=== PATIENT | female | born 1985 | race Caucasian/White ===

== ENCOUNTER 2017-12-25 07:30 | Outpatient (RCR) | payer SELFPAY ==
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
--- NOTE | 2018-03-08 10:44 | HP.PT.NRP ---
HP - Discharge Summary (1) - Patient Information ESTIVEN VARGAS was seen in my office for initial evaluation on 12/22/17. The following Plan of Care was established for this patient: Initial Frequency: 1x/Week Initial Duration: 6 Months - Anticipated Interventions Manual Therapy Techniques to Include: Functional dry needling This patient was last seen in our office . Pertinent comments regarding their Physical therapy will appear below: Patient to be seen for formal PT- d/c from dry needling as patient needs more than this modality. At this point I will be discontinuing this patient from physical therapy. I would be happy to see this patient again in the future if found appropriate by the physician. Thank you! Maura José
== END 2017-12-25 19:00 | disposition home or self-care (01) ==
LOC: PT 07:30
PROVIDERS: Family Provider Family Medicine; PCP Family Medicine
DX: R69 Illness, unspecified (principal)

== ENCOUNTER → 2017-12-31 16:44 | Outpatient (CLI) | payer OTHER, SELFPAY ==
[2018-01-08 07:25] LABS: HPV Reflexed? NOT INDICATED
== END ==
PROVIDERS: Family Provider Family Medicine; PCP Family Medicine; Visit Provider Obstetrics & Gynecology
DX: Z12.4 Encounter for screening for malignant neoplasm of cervix (principal)
CPT/HCPCS: 88175; G0145

== ENCOUNTER → 2018-01-08 10:31 | Outpatient (CLI) | payer OTHER, SELFPAY ==
--- NOTE | 2018-01-08 10:37 | RAD_ITS ---
STUDY: X-RAY - LEFT SHOULDER REASON FOR EXAM: Female, 32 years old. Shoulder pain. No trauma TECHNIQUE: 3 view(s) of the shoulder. COMPARISON: None. FINDINGS: Normal glenohumeral articulation. Normal acromioclavicular joint. Normal acromion. Normal humeral head and visualized proximal humerus. The soft tissue structures are unremarkable. Normal visualized pulmonary apex. RAD/Shoulder min 2 Views IMPRESSION: Normal x-ray examination of the shoulder. Electronically Signed: Frankie Sanchez MD, FACR at 11:14 EST , Service support ,
== END ==
PROVIDERS: Family Provider Family Medicine; PCP Family Medicine; Visit Provider Orthopaedic Surgery
DX: M25.512 Pain in left shoulder (principal)
CPT/HCPCS: 73030

== ENCOUNTER 2018-01-22 07:00 | Outpatient (RCR) | payer OTHER, SELFPAY ==
--- NOTE | 2018-01-20 13:33 | HP.PTEVAL_ITS ---
Patient's Visit Information ESTIVEN VARGAS is a 32 year old F referred to Physical Therapy by DO JOSE DE JESUS Sepulveda with a diagnosis of L shoulder impingement. Date of Evaluation: 01/20/18 Physical Therapist: Edgard Eisenberg PT, - Visit Plan Frequency: 1x/Week Duration: 1-2 weeks Plan: Edu and issue HEP for rot cuff strengthening and scap stab ex's - Subjective Subjective: Pt reports her L shoulder became sore in October 2017. Pt reports the pain worsened and by the end of November, she finally went and saw Dr. Yates for a consult. Pt reports she had Xrays which revealed no sig findings. Pt also notes she had dry neddling in the past which did not help. Pt reports she believes that lifting weights is maybe what caused her pain to occur. Pt reports her pain has sig lessened since stopping with her weight lifting. Pt is also in yoga, and notes that also causes her pain. Pt is R hand dom. Pt notes overhead lifting causes pain when is already sore. Pt notes occasional sleep diff. 3/10 at rest, 7/10 at worst - Pain L shoulder Pain Intensity (Out of 10): 3 Pain Intensity Range: 7 - Objective Neuro: B UE sensation is WNL to light touch. B bicepital reflex= 2/3. Palpation : Pt is very tender along the LHB tendon and the supraspinatus. No obvious deformity present. ROM: R shoulder flex= 178, abd= 178, ER= 55, IR WNL; L shoulder flex= 150, abd= 178, ER= 35, IR min limited. MMT: R shoulder 5/5 throughout, L shoulder abd and IR= 5/5, flex and ER= 4-/5 painful. Special testing: pos empty can sign - Goals Goal 1:: I with HEP Goal Time Frame: 1 Week - Rehabilitation Potential Physical Therapy Diagnosis: L shoulder pain, weakness, and limited mobility secondary to R shoulder impingement Rehabilitation Potential: Good - Anticipated Interventions Patient/Client Instruction: Educate patient on: Condition, Plan of Care For the Purpose of:: To improve self management Therapeutic Exercise to Include: Strength training, Endurance training, Body mechanics, Postural training, Scapular Strength/Stabilization For the Purpose of:: To decrease pain, To increase ROM, To improve muscle performance and motor function Thank you for the opportunity to evaluate your patient. For Medicare and Medicare HMO plans, please review the plan of care and approve it. It will need to be FAXED BACK to us at [phone] for Medicare purposes. Please let me know if there are questions or concerns regarding this plan of care. Physician Signature: Date:
--- NOTE | 2018-03-29 12:11 | HP.PT.NRP ---
HP - Discharge Summary (1) - Patient Information ESTIVEN VARGAS was seen in my office for initial evaluation on 01/20/18. The following Plan of Care was established for this patient: Initial Frequency: 1x/Week Initial Duration: 1-2 weeks - Anticipated Interventions Patient/Client Instruction: Educate patient on: Condition, Plan of Care For the Purpose of:: To improve self management Therapeutic Exercise to Include: Strength training, Endurance training, Body mechanics, Postural training, Scapular Strength/Stabilization For the Purpose of:: To decrease pain, To increase ROM, To improve muscle performance and motor function This patient was last seen in our office . Pertinent comments regarding their Physical therapy will appear below: Pt was last treated on the date of 01/22/18 for her shoulder pain. Pt was issued a HEP and was I with ex's at that time. Pt has not returned through todays date and is therefore discontinued at this time At this point I will be discontinuing this patient from physical therapy. I would be happy to see this patient again in the future if found appropriate by the physician. Thank you! Edgard Eisenberg, PT,
== END 2018-01-22 19:00 | disposition home or self-care (01) ==
LOC: PT 07:00
PROVIDERS: Family Provider Internal Medicine; PCP Internal Medicine; Visit Provider Orthopaedic Surgery
DX: M75.42 Impingement syndrome of left shoulder (principal); M75.22 Bicipital tendinitis, left shoulder
CPT/HCPCS: 97110; 97161

== ENCOUNTER → 2019-02-09 11:27 | Outpatient (CLI) | payer OTHER, SELFPAY ==
[2019-02-09 14:28] LABS: HIV - WCH Non-Reactive (Nonreactive)
[2019-02-09 17:39] LABS: Chlamydia Trachomatis by PCR Negative (Negative); Neisserai gonorrhoeae by PCR Negative (Negative); Probe Check PASS; Sample Adequacy Control PASS; Specimen Processing Control PASS
[2019-02-10 16:08] LABS: HEPATITIS B SURFACE AG Negative (Negative); Hepatitis B Core AB IgM Negative (Negative); Hepatitis B Core Ab Total Negative (Negative); Hepatitis Be Ab Negative (Negative); Hepatitis Be Ag Negative (Negative); Hepatitis C Ab <0.1 s/co ratio (0.0-0.9)
[2019-02-10 20:20] LABS: Rapid Plasmin Reagin (RPR) NONREACTIVE (NONREACTIVE)
[2019-02-11 08:53] LABS: Hep B Surface Antibodies Non Reactive (.)
== END ==
PROVIDERS: Visit Provider Obstetrics & Gynecology
DX: N89.8 Other specified noninflammatory disorders of vagina (principal)
CPT/HCPCS: 36415; 86592; 86703; 86704; 86705; 86706; 86707; 86803; 87340; 87350; 87491; 87591

== ENCOUNTER → 2019-04-27 | Outpatient (CLI) | payer OTHER, SELFPAY ==
[2019-04-29 15:55] LABS: HPV Reflexed? NOT INDICATED
== END | disposition home or self-care (01) ==
PROVIDERS: Referring Provider Obstetrics & Gynecology; Visit Provider Obstetrics & Gynecology
DX: Z12.4 Encounter for screening for malignant neoplasm of cervix (principal)
CPT/HCPCS: 88175; G0145

== ENCOUNTER → 2019-05-13 | Outpatient (CLI) | payer OTHER, SELFPAY ==
--- NOTE | 2019-05-13 06:57 | BI_ITS ---
MAMMOGRAPHY - BILATERAL SCREENING REASON FOR EXAM: Female, 33 years old. Routine annual screening examination. PERTINENT HISTORY: Grandmother with breast cancer. TECHNIQUE: Digital bilateral breast rosalind (3D mammographic acquisition) in the CC and MLO projections. 2-D mediolateral oblique (MLO) and craniocaudad (CC) views of both breasts were obtained. CAD: Full Field Digital Mammography with Computer Added Detection was performed. COMPARISON: None. Baseline examination. FINDINGS: Breast Composition: The breasts are extremely dense, which lowers the sensitivity of mammography. There are no dominant masses or suspicious calcifications. No other significant abnormalities are identified. BI/SCREEN MAMM (CAD) W/ROSALIND BILAT IMPRESSION: Negative screening mammogram. Yearly followup mammogram recommended. (A) ASSESSMENT CATEGORY: BIRADS Category 1: Negative. A letter regarding these results will be sent to the patient by the facility within 30 days. Approximately 10% of breast cancers are not detected by mammography. A normal mammogram should not delay biopsy of a clinically suspicious abnormality. [id number] Electronically Signed: Jesus Pascual, at 10:20 EDT , Service support ,
== END | disposition home or self-care (01) ==
PROVIDERS: Referring Provider Obstetrics & Gynecology; Visit Provider Obstetrics & Gynecology
DX: Z12.31 Encounter for screening mammogram for malignant neoplasm of breast (principal)
CPT/HCPCS: 77063; 77067

== ENCOUNTER → 2020-04-25 12:05 | Outpatient (CLI) | payer OTHER, SELFPAY ==
[2020-04-30 14:07] LABS: Age Gdln ACOG Testing 30-65 (.); HPV Genotype 16, Aptima Negative (Negative)
[2020-04-30 14:33] LABS: HPV APTIMA, High Risk Positive (Negative); HPV Genotype 18,45 Aptima Negative (Negative)
[2020-04-30 14:34] LABS: HPV Reflexed? YES, CHARGE PATIENT
== END ==
PROVIDERS: Referring Provider Obstetrics & Gynecology; Visit Provider Obstetrics & Gynecology
DX: Z12.4 Encounter for screening for malignant neoplasm of cervix (principal)
CPT/HCPCS: 87624; 88175; G0145

== ENCOUNTER → 2020-04-26 13:59 | Outpatient (CLI) | payer OTHER, SELFPAY | PROVIDERS: PCP Internal Medicine; Referring Provider Obstetrics & Gynecology; Visit Provider Obstetrics & Gynecology | DX: N63.11 Unspecified lump in the right breast, upper outer quadrant (principal); N63.21 Unspecified lump in the left breast, upper outer quadrant ==

== ENCOUNTER → 2020-05-16 07:02 | Outpatient (CLI) | payer OTHER, SELFPAY ==
--- NOTE | 2020-05-16 07:05 | BI_ITS ---
MAMMOGRAPHY - BILATERAL SCREENING REASON FOR EXAM: Female, 34 years old. Routine annual screening examination. PERTINENT HISTORY: Grandmother with breast cancer. TECHNIQUE: Digital bilateral breast rosalind (3D mammographic acquisition) in the CC and MLO projections. 2-D mediolateral oblique (MLO) and craniocaudad (CC) views of both breasts were obtained. CAD: Full Field Digital Mammography with Computer Added Detection was performed. COMPARISON: Comparison is made with prior study dated May 13, 2019. FINDINGS: Breast Composition: The breasts are extremely dense, which lowers the sensitivity of mammography. There are no dominant masses or suspicious calcifications. No other significant abnormalities are identified. There has been no significant change since the prior study. BI/SCREEN MAMM (CAD) W/ROSALIND BILAT IMPRESSION: Stable bilateral screening mammogram. Yearly follow-up mammogram recommended. (A) ASSESSMENT CATEGORY: BIRADS Category 1: Negative. A letter regarding these results will be sent to the patient by the facility within 30 days. Approximately 10% of breast cancers are not detected by mammography. A normal mammogram should not delay biopsy of a clinically suspicious abnormality. [id number] Electronically Signed: Jesus Pascual, at 8:52 EDT , Service support ,
== END ==
PROVIDERS: PCP Internal Medicine; Referring Provider Obstetrics & Gynecology; Visit Provider Obstetrics & Gynecology
DX: Z12.31 Encounter for screening mammogram for malignant neoplasm of breast (principal)
CPT/HCPCS: 77063; 77067

== ENCOUNTER → 2020-10-05 14:58 | Outpatient (CLI) | payer OTHER, SELFPAY ==
[2020-10-09 03:07] LABS: Chlamydia By Nucleic Acid AMP Negative (Negative)
[2020-10-09 06:28] LABS: Gonococcus By Nucleic Acid AMP Negative (Negative)
== END ==
PROVIDERS: PCP Internal Medicine; Visit Provider Obstetrics & Gynecology
DX: Z11.3 Encounter for screening for infections with a predominantly sexual mode of transmission (principal)
CPT/HCPCS: 87491; 87591

== ENCOUNTER → 2021-09-13 14:46 | Outpatient (CLI) | payer OTHER, SELFPAY ==
[2021-09-18 21:07] LABS: HPV Genotype 16, Aptima Negative (Negative)
[2021-09-18 21:23] LABS: HPV APTIMA, High Risk Positive (Negative); HPV Genotype 18,45 Aptima Negative (Negative)
== END ==
PROVIDERS: PCP Internal Medicine; Visit Provider Obstetrics & Gynecology
DX: Z12.4 Encounter for screening for malignant neoplasm of cervix (principal)
CPT/HCPCS: 87624; 88175; G0145

== ENCOUNTER → 2022-09-18 | Outpatient (CLI) | payer MEDICAID, SELFPAY ==
[2022-09-20 13:07] LABS: Chlamydia By Nucleic Acid AMP Negative (Negative)
[2022-09-21 15:26] LABS: Gonococcus By Nucleic Acid AMP Negative (Negative)
[2022-09-26 15:37] LABS: HPV APTIMA, High Risk Positive (Negative)
== END | disposition home or self-care (01) ==
PROVIDERS: PCP Internal Medicine; Visit Provider Obstetrics & Gynecology
DX: Z11.3 Encounter for screening for infections with a predominantly sexual mode of transmission (principal); Z12.4 Encounter for screening for malignant neoplasm of cervix
CPT/HCPCS: 87491; 87591; 87624; 88175; G0145

== ENCOUNTER → 2022-10-28 | Outpatient (CLI) | payer MEDICAID, SELFPAY ==
--- NOTE | 2022-10-28 | IMM_PTH ---
PATIENT: ESTIVEN HUITRON LOC: [facility] U#:[id number] AGE/SX: 37/F ROOM: RE10/28/[address]: Dr. Agustin Harrell MD : 1985 BED: DIS: 10/28/2022 SPEC #: [id number] RECD: 10/30/22 13:41 STATUS: YVONNE REQ #: [id number] YENNY: 10/28/22 00:[address]: Agustin Harrell DEPT: IMMUNOHISTOCHEMISTRY RECD BY: Rukhsana Blankenship ENTERED: 10/30/22 13:42 SP TYPE: IMMUNO OTHR DR: Dr. Samantha Alexandra DO Tissues: A - Uterine cervix, NOS Procedures: p16 (initial) KI-67 (add) PHYSICIAN & INSTITUTION [place] [address] SPECIMEN INFORMATION: Tissue Source: A ? Uterine cervix, biopsy Clinical Info: [facility] Specimen Number: [id number] CPT code: 87590, 95320 METHODOLOGY: Deparaffinized sections of prefer/formalin-fixed tissue or PAP/DQ stained slides are incubated with monoclonal/polyclonal antibodies/oligonucleotide probes. Localization is made via biotin free immunoperoxidase method. Appropriate controls are performed and reacted as expected. Results on target cell population are indicated in the following table: RESULTS: ANTIBODY / CLONE RESULT Block A P16 (E6H4) positive, patchy and focal block-like Ki-67 (30-9) positive, low to moderate These tests were developed and their performance characteristics determined by [facility]. They may not have been cleared or approved by the U.S. Food and Drug Administration. The FDA has determined that such clearance or approval is not necessary. The above immunohistochemical/dualISH markers are ordered and reviewed by the Pathologist. INTERPRETATION: A. Cervix, biopsy: Mild and focal moderate squamous dysplasia, QAMAR I-II (HSIL). AM:jm 10/31/2022
--- NOTE | 2022-10-28 14:30 | CER_PTH ---
PATIENT: ESTIVEN HUITRON LOC: [facility] U#:[id number] AGE/SX: 37/F ROOM: RE10/28/[address]: Dr. Agustin Harrell MD : 1985 BED: DIS: 10/28/2022 SPEC #: [id number] RECD: 10/28/22 15:07 STATUS: YVONNE REAlexis #: [id number] YENNY: 10/28/22 14:[address]: Agustin Harrell DEPT: SURGICAL PATHOLOGY RECD BY: Elisa Iqbal ENTERED: 10/29/22 08:59 SP TYPE: CERV OTHR DR: Dr. Samantha Alexandra DO Tissues: A - Uterine cervix, NOS B - Endocervical Procedures: Surgery Specimen Level IV HEADER OPERATION: Colposcopy PRE-OP DIAGNOSIS: LGSIL TISSUE SUBMITTED: A ? 1, 5, 7, 11, B - ECC MICROSCOPIC DIAGNOSIS A. Cervix, biopsy: Mild and focal moderate squamous dysplasia, QAMAR I-II (HSIL). Changes consistent with HPV cytopathic effect. Chronic inflammation. See comment. B. Endocervix, curettings: Fibrinopurulent material. See comment. AM:jm 10/30/2022 COMMENT A. Results from immunohistochemistry ([id number]) for surrogate HPV marker (p16) will be reported separately. B. Glandular mucosal tissue is not present in the biopsy. Rare detached benign squamous cells are present. Clinical correlation is suggested. MICROSCOPIC DESCRIPTION Slides are reviewed. GROSS DESCRIPTION A - Received is one container labeled with the patient's name and not further designated. The specimen consists of multiple irregular and mucoid fragments of ponce soft tissue that in aggregate measure 2.5 x 2 x 0.1 cm. The specimen is totally submitted in one cassette. B - Received in fixative is one container labeled with the patient's name and designated ECC. The specimen consists of light ponce mucoid material aggregating to 2 x 1.5 x 0.1 cm. The specimen is totally submitted in one cassette. / AM:jm 10/29/2022 TC:3 CPT: 86638 x2
== END | disposition home or self-care (01) ==
LOC: LABSPEC 14:56
PROVIDERS: PCP Internal Medicine; Visit Provider Obstetrics & Gynecology
DX: N87.0 Mild cervical dysplasia (principal)
CPT/HCPCS: 88305; 88341; 88342

== ENCOUNTER 2022-11-17 07:23 | Day surgery (SDC) | payer MEDICAID, SELFPAY ==
[2022-11-17] VITALS (8 sets, daily range): BP systolic 123–151; BP diastolic 79–98; PULSE 62–80; RESP 16; TEMP 36.2–36.6; O2SAT 95–100; BMI 22.8
--- NOTE | 2022-11-17 | CER_PTH ---
PATIENT: ESTIVEN HUITRON LOC: [facility] U#:[id number] AGE/SX: 37/F ROOM: RE11/17/[address]: Dr. Agustin Harrell MD : 1985 BED: DIS: 11/17/2022 SPEC #: [id number] RECD: 11/17/22 09:52 STATUS: YVONNE PIERCE #: [id number] YENNY: 11/17/22 00:[address]: Agustin Harrell DEPT: SURGICAL PATHOLOGY RECD BY: Mario Wallis ENTERED: 11/17/22 10:50 SP TYPE: CERV OTHR DR: Dr. Yue Cerrato MD Tissues: Uterine cervix, NOS Procedures: Surgery Specimen Level V HEADER OPERATION: LEEP cone PRE-OP DIAGNOSIS: Cervical dysplasia TISSUE SUBMITTED: Cone of cervix (stitch at 12 o?clock) MICROSCOPIC DIAGNOSIS Cervix, LEEP conization: Mild squamous dysplasia. Changes consistent with HPV cytopathic effect. Benign fragments of endocervix. Chronic inflammation. See comment. AM:jm 11/18/2022 COMMENT The biopsy is fragmented and precludes definitive evaluation of margins. Immunohistochemistry ([id number]) supports the above diagnosis. Case has been reviewed in consultation with Dr. Leo who concurs with the above diagnosis. IDC:SJ MICROSCOPIC DESCRIPTION Slides are reviewed. GROSS DESCRIPTION Received in fixative is one container labeled with the patient's name and designated cone of cervix, stitch at 12 o'clock. The specimen consists of a previously opened piece of ponce, indurated tissue consistent with LEEP conization measuring 2.6 x 0.6 x 0.2 cm. The specimen is oriented by a suture at 12 o?clock. No mucosal lesion is identified. Non-mucosal surface is inked black. Also present in the container are six detached pieces of ponce soft tissue measuring in aggregate 1.5 x 0.5 x 0.1 cm. The entire specimen is submitted in five cassettes as follows: 1-4 - cervical cone (1 - 12 to 3 o?clock, 2 - 3 to 6 o?clock, 3 - 6 to 9 o?clock, 4 - 9 to 12 o?clock), 5 - detached pieces of tissue. / BLADIMIR:jm 11/17/2022 TC:0 CPT: 21411
--- NOTE | 2022-11-17 | IMM_PTH ---
PATIENT: ESTIVEN HUITRON [place] [facility] [place][id number] AGE/SX: 37/F ROOM: RE11/17/[address]: Dr. Agustin Harrell MD : 1985 BED: DIS: 11/17/2022 SPEC #: [id number] RECD: 11/18/22 12:32 STATUS: YVONNE REQ #: [id number] YENNY: 11/17/22 00:[address]: Agustin Harrell DEPT: IMMUNOHISTOCHEMISTRY RECD BY: Rukhsana Blankenship ENTERED: 11/18/22 12:33 SP TYPE: IMMUNO OTHR DR: Dr. Yue Cerrato MD Tissues: UTERINE CERVIX LEEP Procedures: p16 (initial) KI-67 (add) P16 (add) PHYSICIAN & INSTITUTION [place] [address] SPECIMEN INFORMATION: Tissue Source: Cervix, LEEP conization Clinical Info: Cervical dysplasia Specimen Number: [id number] #1, 2, 4 & 5 [facility] code: 11855, 49064 x7 METHODOLOGY: Deparaffinized sections of prefer/formalin-fixed tissue or PAP/DQ stained slides are incubated with monoclonal/polyclonal antibodies/oligonucleotide probes. Localization is made via biotin free immunoperoxidase method. Appropriate controls are performed and reacted as expected. Results on target cell population are indicated in the following table: RESULTS: ANTIBODY / CLONE RESULT Block 1 P16 (E6H4) positive, focal, patchy Ki-67 (30-9) positive, low Block 2 P16 (E6H4) negative Ki-67 (30-9) negative Block 4 P16 (E6H4) positive, focal, patchy Ki-67 (30-9) positive, low Block 5 P16 (E6H4) positive, focal, patchy Ki-67 (30-9) positive, low These tests were developed and their performance characteristics determined by [facility]. They may not have been cleared or approved by the U.S. Food and Drug Administration. The FDA has determined that such clearance or approval is not necessary. The above immunohistochemical/dualISH markers are ordered and reviewed by the Pathologist. INTERPRETATION: Cervix, LEEP conization: Focal HPV change present. AM:jm 11/19/2022
[2022-11-17 07:56] LABS: Internal QC Validated? YES +Cl - CLEAR BKGD; Pregnancy, Urine Negative Negative
[2022-11-17] MEDS: Lactated Ringers 1,000 ML 15 ML IV ×2 (08:02→09:54)
--- NOTE | 2022-11-17 08:13 | PCM.HP.BLA ---
History and Physical Date of Admission: 11/17/22 Chief complaint: LEEP History present illness: 37-year-old arrives for LEEP procedure. No medical changes since last seen. All questions answered and consent signed. Obstetric history: Patient G1, P0 history of SAB Past medical history: Anxiety Medications: Escitalopram, amlodipine, Junel, valacyclovir Past surgical history: Appendectomy, D&C Allergies: No known drug allergies Social history: Former smoker, denies alcohol or drug use Family history: Denies history of DVT or PE Review of systems: Besides above pertinent positives a full review of systems was performed and found to be negative Physical exam: Vitals: Blood pressure 148/98 pulse 80 respiratory rate 16 temperature 97.8 ?F SPO2 100% on room air General: Normal-appearing no acute distress HEENT: Normocephalic/atraumatic no cervical of adenopathy Cardiac/respiratory: No use accessory muscles, nonlabored breathing Abdomen: Soft, nontender, nondistended Extremities: No peripheral edema normal peripheral pulses Psych: Normal affect normal demeanor nonpressured speech Labs: Urine test negative Assessment plan: 37-year-old for LEEP procedure. Educated on risk benefits alternatives of the procedure. All questions answered and consent was signed.
[2022-11-17] MEDS: Cefazolin 2 GM in 0.9% Normal Saline 100 ML IV (08:47)
[2022-11-17] MEDS: Iodine/Potassium Iodide 14ML Bottle 1 DRP TOPICAL (08:58)
[2022-11-17] MEDS: FERRIC SUBSULFATE 8 GM SOLN (09:07)
--- NOTE | 2022-11-17 09:21 | DCINST_ITS ---
Discharge Instructions Diet Discharge Diet: No restrictions Activity Discharge Activity: Return to Normal Activity, May Drive and May Shower May resume sexual activity in: 4-6 weeks Weight Bearing Status: Weight bearing as tolerated Dressing / Incision Call your doctor if your incision/area has: Continuous Slow Oozing and Foul Smelling Discharge Call your doctor if you observe: Fever of 101 or Higher, Shortness of breath and Chest pain Follow Up Care Please Follow Up With: Agustin Harrell MD When: 2 weeks postoperatively Test Results: Test results from this visit will be discussed in further detail at your follow- up appointment, if applicable. Discharge Plan Admission Attending Provider: Agustin Harrell Primary Care Provider: Yue Cerrato Discharge Orders/Prescriptions Prescriptions: No Action amlodipine 5 mg tablet 5 mg PO DAILY Label Comments: take 1 tablet by mouth once daily valacyclovir 500 mg tablet 500 mg PO BID Label Comments: take 1 tablet by mouth twice a day norethindrone ac-eth estradiol [Anna Marie 12/19 ()] 1-20 mg-mcg tablet 1 tab PO DAILY Label Comments: take 1 tablet by mouth once daily multivitamin Capsule 1 cap PO DAILY vitamin B complex [B Complex] Capsule 1 cap PO DAILY escitalopram oxalate 10 mg tablet 5 mg PO DAILY Label Comments: take 1 tablet by mouth once daily Referrals / Follow Up: Yue Cerrato MD [Primary Care Provider] - Disposition Disposition (needs filled in before D/C Order can be placed): Home, Self Care
--- NOTE | 2022-11-17 09:22 | PCM.OPRPT ---
Report of Operation Date of Procedure: 11/17/22 Pre-Operative Diagnosis: Cervical dysplasia Post-Operative Diagnosis: Cervical dysplasia Surgery/Procedure Performed:: Loop electrosurgical excision procedure Description of Surgical Findings:: Surgeon: Agustin Harrell MD Anesthesia: General EBL: 10 cc Urine output: Not measured IV fluids: 700 cc Complications: None Specimen: LEEP conization Findings: Transformation zone visualized. Lugol's solution placed on cervix, no obvious signs of dysplasia. Sturmdorf suture placed and Monsel's solution on operative site Consent: Patient with cervical dysplasia elects for loop electrosurgical excision procedure. Patient understands risk of the procedure include but are not limited to visceral or vascular injury, prolonged hospitalization, blood loss need for transfusion, reoperation. Patient state understanding and wished to proceed. All questions were answered and consent was signed. Procedure: Patient was brought back to the OR where general anesthesia was found to be adequate. 2 g of Ancef were given for infection prophylaxis. Patient was prepared and draped in dorsolithotomy position with yellowfin stirrups. A speculum was placed. Lugol's solution was placed over the cervix, above findings were noted. Using loop cautery loop electrosurgical excision procedure performed. Sample tagged at 12:00 and sent to pathology. Hemostasis was achieved with a rollerball cautery and modified Sturmdorf suture. Monsel's solution placed over operative site. Good hemostasis was noted. All counts were correct x2. Patient tolerated procedure well and was brought to recovery in stable condition.
[2022-11-17] MEDS: oxyCODONE 5 MG Tablet PO (11:08)
== END 2022-11-17 12:18 | disposition home or self-care (01) ==
LOC: SDC 07:26 → AC 07:26
PROVIDERS: Anesthesiology; PCP Internal Medicine; Referring Provider Obstetrics & Gynecology; Visit Provider Obstetrics & Gynecology
PROC: 0UBC7ZZ Excision of Cervix, Via Natural or Artificial Opening (ICD-10-PCS; CPT 57522; principal; 2022-11-17 08:45)
DX: N87.9 Dysplasia of cervix uteri, unspecified (principal); Z87.891 Personal history of nicotine dependence; F32.A Depression, unspecified; I10 Essential (primary) hypertension; Z90.49 Acquired absence of other specified parts of digestive tract
CPT/HCPCS: 57522; 81025; 88307; 88341; 88342; J7120; J2405

== ENCOUNTER → 2023-06-09 | Outpatient (CLI) | payer BC, MEDICAID, SELFPAY ==
[2023-06-13 12:08] LABS: HPV APTIMA, High Risk Negative (Negative)
== END | disposition home or self-care (01) ==
LOC: LABSPEC 06-10 10:47
PROVIDERS: PCP Internal Medicine; Visit Provider Obstetrics & Gynecology
DX: Z01.419 Encounter for gynecological examination (general) (routine) without abnormal findings (principal)
CPT/HCPCS: 87624; 88175; G0145